=== PATIENT | male | born 1990 | race Hispanic/Latino ===

== ENCOUNTER → 2024-09-27 | Outpatient (CLI) | payer OTHER ==
--- NOTE | 2024-09-27 16:08 | HMCIMG ---
CT NONCONTRAST CHEST Comparison Study: none History: ABN FINDING OF LUNG FIELD Technique: Helical CT of the chest without IV contrast at 5 mm collimation. Coronal and sagittal reformations also done. CT Dose Index (CTDI): 2.38 mGy Dose Length Product (DLP): 94.8 total mGy-cm Findings: The airway is intact. The trachea and major bronchi are unremarkable. Bilateral apical fibrotic changes are seen and there are multiple apical bilateral pulmonary nodules, some spiculated. No pleural effusions are identified. There is no pneumothorax. There is no evidence of pneumomediastinum. The nonenhanced exam of the vic and mediastinum is unremarkable. No evidence of hilar enlargement is seen. The aorta shows no aneurysmal dilatation or significant atheromatous calcification. No significant brachiocephalic vascular abnormalities are seen. The heart is unremarkable. It is not enlarged. No significant coronary arterial calcifications are seen. There is no pericardial effusion. The rib cage appears unremarkable. The soft tissues of the chest wall are unremarkable. The dorsal spine shows no significant abnormalities. IMPRESSION: Suspected fibrotic changes of the upper lobes. There are no comparison studies available. Therefore, I recommend short-term follow-up CT without contrast in 3 months.. This study was performed using dose reduction techniques to include automated exposure control and/or adjustment of the mA and/or kV according to patient size.
== END | disposition home or self-care (01) ==
LOC: RAH 13:13 → EEVIPCON 13:30
PROVIDERS: ATTEND Family Medicine
DX: Z11.1 Encounter for screening for respiratory tuberculosis (principal); R91.8 Other nonspecific abnormal finding of lung field; J30.9 Allergic rhinitis, unspecified; M54.50 Low back pain, unspecified; R51.9 Headache, unspecified; F43.20 Adjustment disorder, unspecified
CPT/HCPCS: 71250

== ENCOUNTER → 2024-12-12 | Outpatient (CLI) | payer OTHER ==
--- NOTE | 2024-12-12 14:33 | HMCIMG ---
EXAM: CT Chest Without Intravenous Contrast. CLINICAL HISTORY: 33 year old male with fibrotic changes. TECHNIQUE: Axial computed tomography images of the chest without intravenous contrast. Dose reduction technique was used including one or more of the following: automated exposure control, adjustment of mA and kV according to patient size, and/or iterative reconstruction. CONTRAST: NONE. COMPARISON: None provided. FINDINGS: LUNGS: There is a spiculated mass in the right upper lobe measuring 1.4 cm in diameter (image numbers [id number] and [id number]). Multiple smaller rounded pulmonary nodules are seen in the left upper lobe ranging in size from 4 mm to 7 mm. Multiple small pulmonary nodules are also seen in the right lower lobe ranging in size from 4 mm to 8 mm. Overall metastatic disease is in the differential. Recommend CT PET for further workup. PLEURAL SPACES: No pleural effusion. No pneumothorax. HEART AND MEDIASTINUM: No cardiomegaly. No significant pericardial effusion. Small mediastinal and hilar lymph nodes seen, appearance noted. LYMPH NODES: Small mediastinal and hilar lymph nodes seen, appearance noted. CHEST WALL AND UPPER ABDOMEN: The upper abdominal solid organs are unremarkable. The chest wall is unremarkable. BONES: No acute osseous abnormality. IMPRESSION: 1. Spiculated mass in the right upper lobe measuring 1.4 cm in diameter. Possible primary lung neoplasm. 2. Multiple smaller rounded pulmonary nodules in the left upper lobe (4-7 mm) and right lower lobe (4-8 mm). 3. Small mediastinal and hilar lymph nodes. 4. Overall metastatic disease is in the differential. Recommend CT PET for further workup. 5. Findings are similar to prior CT Chest 09/27/2024 12:48, however report was not provided. /[place]
== END | disposition home or self-care (01) ==
LOC: RAH 12:58 → EEVIPCON 14:00
PROVIDERS: ATTEND Physical Medicine & Rehabilitation
DX: R91.8 Other nonspecific abnormal finding of lung field (principal); J98.4 Other disorders of lung
CPT/HCPCS: 71250